=== PATIENT | female | born 1975 | race Caucasian/White ===

== ENCOUNTER 2017-01-14 15:44 | Emergency (ER) | payer OTHER ==
[2017-01-14 17:49] LABS: BASOPHIL % 0.5 % (0-2); PLATELET COUNT 306 x10^3mcL (130-400); RED CELL DISTRIBUTION WIDTH 13.4 % (11.5-14.5)
[2017-01-14 18:19] VITALS: BP 118/64
[2017-01-14 18:38] LABS: CALCIUM 8.3 mg/dL (8.5-10.1); CARBON DIOXIDE 27.4 mmol/L (21-32); CHLORIDE SERUM 104 mmol/L (98-107); CREATININE SERUM 0.7 mg/dL (0.6-1.0); GFR1 > 60 mL/min; GLUCOSE SERUM 121 mg/dL (74-106); POTASSIUM SERUM 3.3 mmol/L (3.5-5.1); SODIUM SERUM 139 mmol/L (136-145)
[2017-01-14 18:44] LABS: ALKALINE PHOSPHATASE 57 U/L (46-116); ALT/SGPT 13 U/L (14-59); AST/SGOT 9 U/L (15-37); BILIRUBIN TOTAL 0.4 mg/dL (0.20-1.00); TOTAL PROTEIN, SERUM 6.9 g/dL (6.4-8.2)
[2017-01-14 18:45] LABS: ALBUMIN 3.3 g/dL (3.4-5.0)
== END 2017-01-14 19:01 | disposition home or self-care (01) ==
LOC: ED 15:44
PROVIDERS: Emergency Medicine
DX: R07.9 Chest pain, unspecified (principal); E87.6 Hypokalemia; F17.200 Nicotine dependence, unspecified, uncomplicated; I10 Essential (primary) hypertension; J45.909 Unspecified asthma, uncomplicated
CPT/HCPCS: 83880; 99406; J1885; Q0092

== ENCOUNTER 2017-11-12 19:57 | Emergency (ER) | payer OTHER ==
[~2017-11-12] VITALS: Ht 157.5 cm; Wt 58.1 kg
[2017-11-12 20:14] VITALS: Ht 157.5 cm; Wt 58.1 kg
[2017-11-12 22:45] VITALS: BP 132/88
== END 2017-11-12 22:45 | disposition home or self-care (01) ==
LOC: ED 19:57
DX: S92.351A Displaced fracture of fifth metatarsal bone, right foot, initial encounter for closed fracture (principal); J45.909 Unspecified asthma, uncomplicated; I10 Essential (primary) hypertension; Z88.0 Allergy status to penicillin; W08.XXXA Fall from other furniture, initial encounter; Y93.89 Activity, other specified; Y92.009 Unspecified place in unspecified non-institutional (private) residence as the place of occurrence of the external cause; Y99.8 Other external cause status

== ENCOUNTER 2018-08-24 17:12 | Emergency (ER) | payer OTHER ==
[~2018-08-24] VITALS: Ht 157.5 cm; Wt 67.4 kg
[2018-08-24 17:29] VITALS: Ht 157.5 cm; Wt 67.4 kg
[2018-08-24 21:06] VITALS: BP 125/79
== END 2018-08-24 21:06 | disposition home or self-care (01) ==
LOC: ED 17:12
DX: G43.909 Migraine, unspecified, not intractable, without status migrainosus (principal); H92.01 Otalgia, right ear
CPT/HCPCS: J0780; J1885; J3030; J7030

== ENCOUNTER 2018-11-25 14:22 | Emergency (ER) | payer OTHER ==
[~2018-11-25] VITALS: Ht 157.5 cm; Wt 67.6 kg
[2018-11-25 19:08] VITALS: BP 129/81
== END 2018-11-25 19:08 | disposition home or self-care (01) ==
LOC: ED 14:22
DX: G43.909 Migraine, unspecified, not intractable, without status migrainosus (principal); J45.909 Unspecified asthma, uncomplicated; Z88.0 Allergy status to penicillin; Z86.19 Personal history of other infectious and parasitic diseases
CPT/HCPCS: J1885; J2765

== ENCOUNTER 2019-02-01 12:49 | Emergency (ER) | payer OTHER ==
[~2019-02-01] VITALS: Ht 157.5 cm; Wt 68.9 kg
[2019-02-01 13:05] VITALS: Ht 157.5 cm; Wt 68.9 kg
[2019-02-01 14:14] VITALS: BP 132/77
[2019-02-01 14:14] LABS: UA SPECIFIC GRAVITY 1.025 (1.005-1.035); microscopic required? YES; urine erythrocyte TRACE (NEGATIVE)
== END 2019-02-01 14:15 | disposition home or self-care (01) ==
LOC: ED 12:49
PROVIDERS: Emergency Medicine
DX: N39.0 Urinary tract infection, site not specified (principal); J45.909 Unspecified asthma, uncomplicated; G43.909 Migraine, unspecified, not intractable, without status migrainosus; Z98.890 Other specified postprocedural states

== ENCOUNTER 2019-05-15 05:50 | Emergency (ER) | payer OTHER ==
[~2019-05-15] VITALS: Ht 157.5 cm; Wt 69.9 kg
[2019-05-15 05:57] VITALS: Ht 157.5 cm; Wt 69.9 kg
[2019-05-15 08:15] VITALS: BP 131/73
== END 2019-05-15 08:32 | disposition home or self-care (01) ==
LOC: ED 05:50
DX: G43.909 Migraine, unspecified, not intractable, without status migrainosus (principal); J45.909 Unspecified asthma, uncomplicated; Z98.890 Other specified postprocedural states
CPT/HCPCS: J3030

== ENCOUNTER 2019-06-29 12:15 | Emergency (ER) | payer OTHER ==
[2019-06-29 12:46] VITALS: BP 127/86
== END 2019-06-29 14:10 | disposition home or self-care (01) ==
LOC: ED 12:15
DX: B08.4 Enteroviral vesicular stomatitis with exanthem (principal); J45.909 Unspecified asthma, uncomplicated; G43.909 Migraine, unspecified, not intractable, without status migrainosus; Z98.890 Other specified postprocedural states; Z88.0 Allergy status to penicillin
CPT/HCPCS: J2930

== ENCOUNTER 2019-10-03 22:44 | Emergency (ER) | payer OTHER ==
[~2019-10-03] VITALS: Ht 157.5 cm; Wt 69.2 kg
[2019-10-03 22:56] VITALS: Ht 157.5 cm; Wt 69.2 kg
[2019-10-03 23:25] VITALS: BP 130/77
== END 2019-10-03 23:25 | disposition home or self-care (01) ==
LOC: ED 22:44
DX: G43.909 Migraine, unspecified, not intractable, without status migrainosus (principal); J45.909 Unspecified asthma, uncomplicated; Z86.19 Personal history of other infectious and parasitic diseases; Z98.890 Other specified postprocedural states; Z88.0 Allergy status to penicillin
CPT/HCPCS: Q0162

== ENCOUNTER 2020-03-10 23:11 | Emergency (ER) | payer OTHER ==
[~2020-03-10] VITALS: Ht 157.5 cm; Wt 69.0 kg
[2020-03-10 23:32] VITALS: Ht 157.5 cm; Wt 69.0 kg
[2020-03-11 01:24] VITALS: BP 127/74
== END 2020-03-11 01:24 | disposition home or self-care (01) ==
LOC: ED 23:11
DX: S39.012A Strain of muscle, fascia and tendon of lower back, initial encounter (principal); J45.909 Unspecified asthma, uncomplicated; Z88.0 Allergy status to penicillin; G43.909 Migraine, unspecified, not intractable, without status migrainosus; X58.XXXA Exposure to other specified factors, initial encounter; Y93.89 Activity, other specified; Y92.89 Other specified places as the place of occurrence of the external cause; Y99.8 Other external cause status
CPT/HCPCS: J1885